=== PATIENT | female | born 1980 | race Hispanic/Latino ===

== ENCOUNTER 2018-01-24 18:49 | Emergency (ER) | payer OTHER, SELFPAY ==
[2018-01-24 19:30] LABS: #Basophils 0.1 thou/uL (0.0-0.2); #Eosinphils 0.2 thou/uL (0.0-0.7); #Lymphocytes 4.2 thou/uL (1.20-3.40); %Basophils 0.7 % (0.0-1.0); %Eosinophils 1.5 % (0.0-10.0); %Lymphocytes 29.1 % (21.0-51.0); %Monocytes 6.8 % (0.0-10.0); %Neutrophils 61.8 % (42.0-75.0); Hemoglobin 13.5 g/dL (12.0-16.0); Mean Corpuscular HGB CONC 33.8 g/dL (32.0-36.0); Mean Corpuscular Hemoglobin 28.7 pg (27.0-31.0); Mean Corpuscular Volume 85.1 fL (78.0-98.0); Mean Platelet Volume 6.7 fL (7.4-10.4); Platelet Count 367 thou/uL (130-400); RBC Distribution Width 11.5 % (11.5-14.5); Red Blood Cell (RBC) Count 4.69 mill/uL (4.20-5.40); White Blood Cell (WBC) Count 14.6 thou/uL (4.8-10.8)
--- NOTE | 2018-01-24 21:54 | ULT ---
PELVIC ULTRASOUND: 01/24/2018 HISTORY: A 37-year-old female. Vaginal bleeding. . COMPARISON: None. TECHNIQUE: Multiplanar brothers-scale sonographic imaging of the pelvis obtained with transabdominal imaging. The ov timothy are assessed with color-flow and spectral analysis. FINDINGS: The uterus measures 9 x 5.3 x 7.4 cm. The uterus contains a gestational sac. Within the gestational sac is a pole, which measures 0. 64 cm. This would correlate with a 6-mgua-0-day gestation. No heart tones could be appreciate d on this exam. No evidence for free pelvic fluid. There is a crescentic hypoechoic area adjacent t o the gestational sac, measuring 1.2 x 0.3 cm, suggesting a subchorionic hemorrhage. There may be a second component of subchorionic hemorrhage adjacent to the gestational sac, measuring in the 7 mm ra nge. Both ovaries demonstrate blood flow. The right ovary measures 3.7 x 2.2 x 2 cm, and the left o vary measures 4.4 x 2.8 x 3.9 cm. Two cysts are seen within the left ovary, measuring up to 1.3 and 1.6 cm, respectively. IMPRESSION: Intrauterine gestational sac, containing a single pole, with no heart tones appreciated. This is suspicious for demise, given clinical age of 9 weeks 2 days. However, correlation wit h quantitative beta hCG at this time and in 48 hours is advised. POS: LISA
== END 2018-01-24 21:38 | disposition home or self-care (01) ==
LOC: ERS 18:49
DX: O20.0 Threatened abortion (principal); O24.111 Pre-existing type 2 diabetes mellitus, in pregnancy, first trimester; E11.9 Type 2 diabetes mellitus without complications; Z3A.01 Less than 8 weeks gestation of pregnancy
CPT/HCPCS: 36415; 76856; 84702; 85025; 86900; 86901

== ENCOUNTER 2018-02-01 15:49 | Outpatient (CLI) | payer OTHER ==
--- NOTE | 2018-02-01 18:08 | ULT ---
OB ULTRASOUND: HISTORY: Evaluation for demise. No heart tones were detected at the doctor's office. FINDINGS: Real-time imaging of the pelvis was obtained transabdominally, as well as with an endovaginal probe. This shows an intrauterine gestational sac. There is evidence of a subchorionic bleed with a cresce nt-shaped fluid collection adjacent to the sac. A pole is identified. Jlnpn-ug-nyrf length me asurements of 5.4 mm correspond to 6 weeks 2 days. No heart tones are detected. A small follicle is seen involving the left adnexa. The right ovary is normal in appearance. On Doppler evaluation with spectral analysis, normal flow is shown to both adnexa. IMPRESSION: No motion or heart activity is seen. The zzjig-xr-wrjz length measurements are 6 weeks 2 days. Typically, a heartbeat could be detected at this stage. This is most suggestive of demise. Given the very small size of the pole, a follow-up ultrasound may be performed, as clinically i ndicated. There is also evidence of a subchorionic bleed. POS: LISA
== END 2018-02-01 15:50 | disposition home or self-care (01) ==
LOC: ULT 15:49
PROVIDERS: ATTEND Nurse Practitioner
DX: O09.91 Supervision of high risk pregnancy, unspecified, first trimester (principal); O20.8 Other hemorrhage in early pregnancy; Z3A.01 Less than 8 weeks gestation of pregnancy
CPT/HCPCS: 76856

== ENCOUNTER 2018-09-14 12:00 | Emergency (ER) | payer OTHER, SELFPAY ==
[2018-09-14 12:27] LABS: #Eosinphils 0.2 thou/uL (0.0-0.7); #Monocytes 0.7 thou/uL (0.11-0.59); #Neutrophils 7.8 thou/uL (1.40-6.50); %Basophils 0.4 % (0.0-1.0); %Eosinophils 1.3 % (0.0-10.0); %Lymphocytes 25.7 % (21.0-51.0); %Monocytes 5.6 % (0.0-10.0); Hemoglobin 13.5 g/dL (12.0-16.0); Mean Corpuscular HGB CONC 33.4 g/dL (32.0-36.0); Mean Corpuscular Hemoglobin 28.5 pg (27.0-31.0); Mean Corpuscular Volume 85.3 fL (78.0-98.0); Mean Platelet Volume 6.6 fL (7.4-10.4); Platelet Count 330 thou/uL (130-400); Red Blood Cell (RBC) Count 4.73 mill/uL (4.20-5.40); White Blood Cell (WBC) Count 11.6 thou/uL (4.8-10.8)
[2018-09-14 12:28] LABS: Bilirubin Negative (Negative); Blood, Urine Small (Negative); Glucose, Urine (Dipstick) Negative (Negative); Leukocyte Negative (Negative); Nitrite Negative (Negative); Protein, Urine (Dipstick) Negative (Neg-Trace); Urobilinogen 0.2 mg/dL (Less than 2)
[2018-09-14 12:30] LABS: Clarity Clear (Clear)
[2018-09-14 12:34] LABS: Bacteria/HPF 1+ HPF (None Seen); Squamous Epithelial 0-3 HPF (0-3); WBC/HPF 0-3 HPF (0-3)
--- NOTE | 2018-09-14 13:26 | ULT ---
ULTRASOUND PELVIC ULTRASOUND TRANSVAGINAL DOPPLER DUPLEX: DATE: 09/14/2018 HISTORY: Pelvic pain TECHNIQUE: Transabdominal transducer and endovaginal transducer used to visualize intrapelvic contents with brothers scale, color-flow, and spectral analysis. FINDINGS: Uterus: 8.5 x 6.5 x 5.5 cm. Right ovary: 2 x 4 x 2 cm with flow. Left ovary: 4.5 x 3 x 2.5 cm with flow. Prominent follicles, the largest of which is 1.5 x 1 x 1 cm. Small amount of free fluid in the posterior cul-de-sac and left adnexa. Intrauterine gestational sac is elongated and thin. Yolk sac visualized. Embryonic pole with crown-rump length of 0.5 cm corresponding to 6 weeks 2 days gestational age. heart rate 113 bpm. No subchorionic hemorrhage. Several nabothian cysts in the cervix. IMPRESSION: 1) live first trimester intrauterine gestation estimated to be 6 weeks 2 days gestational age. 2) abnormal shape of gestational sac, thin and elongated. 3) ovaries are bilaterally prominent, especially left.
== END 2018-09-14 13:39 | disposition home or self-care (01) ==
LOC: ERS 12:00
DX: O20.0 Threatened abortion (principal); O24.911 Unspecified diabetes mellitus in pregnancy, first trimester; Z79.84 Long term (current) use of oral hypoglycemic drugs; Z3A.01 Less than 8 weeks gestation of pregnancy
CPT/HCPCS: 36415; 76856; 81003; 84702; 85025; 86900; 86901; 87086

== ENCOUNTER 2018-10-26 07:31 | Emergency (ER) | payer OTHER, SELFPAY ==
[2018-10-26 08:36] LABS: Bilirubin Negative (Negative); Blood, Urine Large (Negative); Glucose, Urine (Dipstick) Negative (Negative); Leukocyte Moderate (Negative); Nitrite Negative (Negative); Protein, Urine (Dipstick) 100 mg/dL (Neg-Trace); Urobilinogen 0.2 mg/dL (Less than 2)
[2018-10-26 08:49] LABS: Clarity Hazy (Clear)
[2018-10-26 08:52] LABS: Bacteria/HPF None Seen HPF (None Seen); RBC/HPF 0-3 HPF (0-3); Squamous Epithelial 0-3 HPF (0-3)
[2018-10-26 08:55] LABS: #Eosinphils 0.2 thou/uL (0.0-0.7); #Lymphocytes 3.1 thou/uL (1.20-3.40); #Monocytes 0.8 thou/uL (0.11-0.59); #Neutrophils 10.8 thou/uL (1.40-6.50); %Basophils 0.3 % (0.0-1.0); %Eosinophils 1.3 % (0.0-10.0); %Lymphocytes 20.8 % (21.0-51.0); %Monocytes 5.4 % (0.0-10.0); %Neutrophils 72.2 % (42.0-75.0); Hemoglobin 12.9 g/dL (12.0-16.0); Mean Corpuscular HGB CONC 34.8 g/dL (32.0-36.0); Mean Corpuscular Hemoglobin 29.7 pg (27.0-31.0); Mean Corpuscular Volume 85.4 fL (78.0-98.0); Mean Platelet Volume 6.9 fL (7.4-10.4); Platelet Count 305 thou/uL (130-400); RBC Distribution Width 12.5 % (11.5-14.5); Red Blood Cell (RBC) Count 4.33 mill/uL (4.20-5.40)
[2018-10-26 09:18] LABS: ALT (SGPT) 16 U/L (8-55); AST (SGOT) 17 U/L (5-34); Albumin 4.2 g/dL (3.5-5.0); Alkaline Phosphatase 76 U/L (40-150); Anion Gap 15 mmol/L (10-20); BUN (Urea Nitrogen) 6 mg/dL (7.0-18.7); Bilirubin, Total 0.3 mg/dL (0.2-1.2); Calc. Creatinine Clearance 0 mL/min (70-130); Calcium 9.2 mg/dL (7.8-10.44); Carbon Dioxide 22 mmol/L (22-29); Chloride 104 mmol/L (98-107); Estimated GFR-MDRD Greater than 90; Globulin 2.8 g/dL (2.4-3.5); Glucose 88 mg/dL (70-105); Potassium 3.6 mmol/L (3.5-5.1); Sodium 137 mmol/L (136-145)
--- NOTE | 2018-10-26 10:44 | ULT ---
LIMITED OB ULTRASOUND: Date: 10/26/18 HISTORY: 38-year-old female with pelvic pain. FINDINGS: A single, live intrauterine gestation is seen, with measurements corresponding to an estimated gestat ional age of 13 weeks/1 day and BLAYNE at 05/02/2019. heart rate measures 145 bpm. measurements are as follows: BPD: 2.06 cm, 13 weeks/2 days HC: 8.14 cm, 13 weeks/4 days AC: 7.05 cm, 13 weeks/4 days FL: 0.82 cm, 12 weeks/3 days Placenta is posteriorly located without evidence of placenta previa. The amniotic fluid appears adequ ate. Both ovaries have a normal appearance and demonstrate flow. Right ovary measures 3.3 x 2.6 x 2.7 cm a nd the left ovary measures 3.8 x 2.5 x 3.6 cm. IMPRESSION: Single, live intrauterine of 13 weeks/1 day estimated gestational age, and BLAYNE at 0. POS: OFF
== END 2018-10-26 11:21 | disposition home or self-care (01) ==
LOC: ERS 07:31
DX: O23.41 Unspecified infection of urinary tract in pregnancy, first trimester (principal); O24.811 Other pre-existing diabetes mellitus in pregnancy, first trimester; Z79.84 Long term (current) use of oral hypoglycemic drugs; Z3A.13 13 weeks gestation of pregnancy
CPT/HCPCS: 36415; 76815; 80053; 81003; 81015; 85025; 87086

== ENCOUNTER 2019-04-28 10:11 | Inpatient (IN) | payer MEDICAID, SELFPAY ==
[~2019-04-28 10:11] MED LIST: Acetaminophen 500 MG TAB PO PRN; Bicitra 30 ML UDCUP PO SCH; CEFAZOLIN 2 GM in Premix Bag 1 BAG IVPB SCH; Dextrose 5% in Water 1,000 ML IV PRN; Dextrose 50% Abboject 50 ML SYRINGE SLOW IVP PRN; HumaLOG 300 UNITS/3 ML VIAL SC PRN; Lactated Ringer's 1,000 ML IV SCH; Ondansetron PF 4 MG/2 ML Vial IVP PRN; Promethazine HCl 25 MG/ML VIAL IM PRN; hydrALAZINE 20 MG/ML VIAL SLOW IVP PRN
[2019-04-28 12:26] LABS: Hemoglobin 12.2 g/dL (12.0-16.0); Mean Corpuscular HGB CONC 34.8 g/dL (32.0-36.0); Mean Corpuscular Hemoglobin 30.9 pg (27.0-31.0); Mean Corpuscular Volume 88.8 fL (78.0-98.0); Mean Platelet Volume 6.8 fL (7.4-10.4); Platelet Count 297 thou/uL (130-400); RBC Distribution Width 12.3 % (11.5-14.5); Red Blood Cell (RBC) Count 3.94 mill/uL (4.20-5.40); White Blood Cell (WBC) Count 9.8 thou/uL (4.8-10.8)
--- NOTE | 2019-04-28 12:33 | PDOC.FPROB ---
FMR OB H&P: HPI - History of Present Illness Chief Complaint: dorothy rC-section Indentification: 39 yo @ 38.4 wks History of Present Illness: Pt presents for repeat scheduled . Pt is pregestational diabetic who during required insulin. Sugars have been overall well controlled. Has had some episodes of asx hypoglycemia. dorothy at 38 weeks at recs of [facility]. Pt reports FM, denies ctx, vaginal bleeding or LOF. Denies any headaches or vision changes. Denies any swelling. Denies any n/v at this time. Pt states sugar was 80 this morning when checked so did not take any insulin. She did not eat anything this morning. Primary Care Physician: MD Tariq FMR OB H&P: Current - Care : 4 Para: 2011 Gestational age: 38.4 Due date: 05/08/19 Dating Criteria: 6.2 wk sono - OB Labs Blood type: O RH: positive Antibody Screen: negative HIV: negative RPR: negative HepBsAg: negative Rubella: immune Quad screen: negative Urine drug screen: negative Gonorrhea: negative Chlamydia: negative Pap Smear: Pap NILM on 11/04/17 A1c: 6.0>5.6>5.2>5.3>5.5>5.6>5.7 GBS: negative H&H: 12.2 Additional labs: Hep C negative. TSH 1.35 03/03/19 24hr protein 198 10/21/18 24 hr protein 195 - First Trimester Ultrasound First trimester: 6w2d crl 60 BLAYNE 05/08/19 - Anatomy Survey Anatomy survey: 12/16/18- Normal echo 01/13/19- 29% hadlock, placental edge 2.0 cm from internol os 03/17/19- Low lying placenta resolved. BPP 10/14. Normal ROSA. Hadlock 32% FMR OB H&P: History - Past Medical History PMH: DM2 - OB History OB History: C-sectionx2, 01/22/11- 2nd at [facility]. 09/03/99 1st in [place]. 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 Denies any hx STD or abnormal pap smear - Surgical History Sx History: x2 - Social History Social History: Denies any smoking, drinking or illicit drug use - Family History Family History: Noncontributory FMR OB H&P: Medications - Current Home Medications: Medication Instructions Recorded Confirmed Type Aspirin Chewable 81 mg PO DAILY 04/28/19 04/28/19 History Insulin Aspart [Novolog Flexpen] 100 unit SQ 04/28/19 History Insulin Aspart [Novolog] 100 unit SQ 04/28/19 History Vits96/Iron Fum/Folic 04/28/19 History [ Tablet] Allergies/Adverse Reactions: Allergies Allergy/AdvReac Type Severity Reaction Status Date / Time sulfacetamide Allergy Severe Hives Verified 04/28/19 14:02 [From Sulfamide] FMR OB H&P: ROS - Review of Systems General: denies: fever/chills, weight/appetite/sleep changes Eyes: denies: eye pain, vision changes Cardiovascular: denies: chest pain, palpitation, paroxysmal nocturnal dyspnea Respiratory: denies: cough, congestion, shortness of breath Gastrointestinal: denies: abdominal pain, indigestion, bloating, cramping, nausea, vomiting, diarrhea Genitourinary (Female): denies: incontinence, dysuria, hematuria Musculoskeletal: denies: pain, stiffness, tenderness Neurologic: denies: numbness, seizures, weakness Integumentary: denies: itching, rash, lesions Breast: denies: lumps Endocrine: denies: cold intolerance, heat intolerance Hematologic/Lymphatic: denies: prolonged or excessive bleeding Psychological: denies: depression, anxiety FMR OB H&P: Vital Signs - Maternal Vital signs: T 98.5 P 73 RR 18 O2 100% on RA BP 99/60 FMR OB H&P: Physical Exam - Physical Exam General: NAD HEENT: normocephalic and atraumatic, grossly normal vision, grossly normal hearing Neck: supple, FROM, trachea midline, no LAD Heart: RRR, normal S1/S2, no murmurs/rubs/gallops, pulses present, no edema General: CTAB, no respiratory distress, good air movement, no rales/rhonchi, no wheezing, no retractions Abdomen: soft, gravid, fundus(cm), non-tender, bowel sound present, no masses Musculoskeletal: normal gait and station, pulses present, FROM in all four extremities, no misalignment/asymmetry Neurological: sensation to pain,touch and proprioception grossly normal Skin: no rash Lymphatic: no unusual bruising or bleeding Psychiatric: intact recent and remote memory, good judgement and insight, normal mood and affect FMR OB H&P: Results - Labs Lab results: Laboratory Results - last 24 hr 04/28/19 12:16 WBC 9.8 RBC 3.94 L Hgb 12.2 Hct 35.0 L MCV 88.8 MCH 30.9 MCHC 34.8 RDW 12.3 Plt Count 297 MPV 6.8 L FMR OB H&P: A/P - Problem List (1) Diabetes mellitus type 2 in obese Current Visit: Yes Status: Acute Code(s): E11.69 - TYPE 2 DIABETES MELLITUS WITH OTHER SPECIFIED COMPLICATION; E66.9 - OBESITY, UNSPECIFIED (2) Current Visit: Yes Status: Acute (3) Advanced maternal age (AMA), 40 years or greater Current Visit: Yes Status: Acute Code(s): [id number] - Disposition: 39 yo @ 38.4 wks by 6.2 wk [facility]2 insulin dependent pregestational diabetes -Will give abx prior to -Pt NPO -FHR 130. Cat 1 strip. - recommended by MFM at 38-39 weeks 2/2 AMA, prior C-sections and insulin dependent Diabetes. DM2 requiring insulin -Last A1c 5.7. Pt been on insulin since early in . -Accuchecks q2 hrs prior to surgery. Will then check ACHS. Pt was not on insulin prior to . Was well controlled on metformin. Will trend glucose pp and adjust tx regimen as needed. -Mild SSI at this time. AMA -Pt has had routine f/u with MFM. Following recs. Discussion: Date/Time: 04/28/19 1231 This H&P was discussed with [] and [] who agree with the above documentation and plan. Addendum - Attending - Attending Attestation Date/Time: 04/28/19 5520. I personally evaluated the patient and discussed the management with Dr. Potter I agree with the History, Examination, Assessment and Plan documented above with any addition or exceptions noted below. presents for rLTCS. R/B/A discussed. will proceed.
[2019-04-28 13:07] LABS: Syphilis Antibody Nonreactive (Nonreactive); Syphilis Antibody Index 0.05 S/CO (<1.00 Non-Reactive)
[2019-04-28 13:08] LABS: HBSAg Index 0.26 S/CO (0-0.99); Hep B Surf Ag Non-Reactive S/CO (NonReactive)
[2019-04-28 14:49] VITALS: BMI 26.6
[2019-04-28] MEDS ORDERED: MORPHINE 5 MG/10 ML PF VIAL ONE (15:09)
[2019-04-28] MEDS ORDERED: Oxytocin 10 UNITS/ML VIAL ONE (15:10)
[2019-04-28] MEDS ORDERED: PHENYLEPHRINE-NS 100 MCG/ML 10 ML SYRINGE ONE (15:10)
[2019-04-28] MEDS ORDERED: Promethazine HCl 25 MG/ML VIAL IM PRN (15:59)
[2019-04-28] MEDS ORDERED: L&D-Morphine 4 MG/ML VIAL SLOW IVP PRN (15:59)
[2019-04-28] MEDS ORDERED: Naloxone HCl 0.4 mg/ml Vial IVP PRN ×2 (15:59)
[2019-04-28] MEDS ORDERED: Ondansetron PF 4 MG/2 ML Vial IVP PRN ×2 (15:59→22:31)
[2019-04-28] MEDS ORDERED: Ketorolac Tromethamine 30 MG/ML VIAL IVP PRN (15:59)
[2019-04-28] MEDS ORDERED: HYDROmorphone 2 MG/ML VIAL SLOW IVP PRN (15:59)
[2019-04-28] MEDS ORDERED: diphenhydrAMINE 50 MG/ML VIAL IVP PRN (15:59)
[2019-04-28] MEDS ORDERED: Meperidine HCl/PF 25 MG/ML VIAL SLOW IVP PRN (15:59)
[2019-04-28] MEDS ORDERED: Promethazine HCl 25 MG SUPP PR PRN (15:59)
[2019-04-28] MEDS ORDERED: Naloxone HCl 0.4 mg/ml Vial IV PRN (15:59)
[2019-04-28] MEDS ORDERED: Ondansetron HCl/PF 4 MG/2 ML Vial IVP PRN (15:59)
[2019-04-28] MEDS ORDERED: Ketorolac Tromethamine 30 MG/ML VIAL IVP SCH (16:00)
[2019-04-28] MEDS ORDERED: Communication Order-Pharmacy FS SCH (16:00)
[2019-04-28] MEDS ORDERED: Ondansetron PF 4 MG/2 ML Vial ONE (16:13)
[2019-04-28] MEDS ORDERED: Midazolam HCl 2 mg/2 ml Vial ONE (16:25)
[2019-04-28] MEDS ORDERED: NS / Oxytocin 40 units/1000ml 1,000 ML ONE (17:31)
[2019-04-28] MEDS ORDERED: Dextrose 50% Abboject 50 ML SYRINGE SLOW IVP PRN (22:31)
[2019-04-28] MEDS ORDERED: diphenhydrAMINE 25 MG CAP PO PRN (22:31)
[2019-04-28] MEDS ORDERED: hydrALAZINE 20 MG/ML VIAL SLOW IVP PRN (22:31)
[2019-04-28] MEDS ORDERED: HumaLOG 300 UNITS/3 ML VIAL SC PRN ×2 (22:31)
[2019-04-28] MEDS ORDERED: Lanolin Ointment 7 GM TUBE TOP PRN (22:31)
[2019-04-28] MEDS ORDERED: Dextrose 5% in Water 1,000 ML IV PRN (22:31)
[2019-04-29] MEDS ORDERED: HYDROcodone/Acetaminophen 5/325 mg Tablet PO PRN ×2 (04:00)
--- NOTE | 2019-04-29 04:32 | PDOC.OBPPN ---
FMR OB PN: Subj - Interval History Hospital Day: 0 Day: 0 Chief Complaint: s/p rLTCS Interval History: Mild pain but well-controlled with PO, no CP, SOB, n/v. FMR OB PN: Obj - Maternal Vital signs: BP 107/69, BG 111 - Urine output I&O: 04/27/19 04/28/19 04/29/19 06:59 06:59 06:59 Output Total 726 Balance -726 - Lochia Lochia: moderate, greater than normal period, intermittent clots. - Pain Management Intervention: oral medication FMR OB PN: Exam - Physical Exam General: NAD, awake, alert and oriented HEENT: EOMI, MMM Neck: supple, trachea midline Heart: RRR, normal S1/S2, no murmurs/rubs/gallops, no edema General: CTAB, no respiratory distress, good air movement, no wheezing Abdomen: soft, other (appropriately TTP. Dressing in place, c/d/i.) Deviation from normal: rivera in place, dark urine. adequate UOP. Neurological: no focal deficit : bandage intact, no drainage, appropriately tender FMR OB PN: Data - Labs Lab results: Laboratory Results - last 24 hr 04/28/19 04/28/19 04/28/19 12:16 12:16 12:16 WBC RBC Hgb Hct MCV MCH MCHC RDW Plt Count MPV POC Glucose Syphilis IgG/IgM Ab Nonreactive Hep Bs Antigen Non-Reactive Blood Type O POSITIVE Antibody Screen NEGATIVE 04/28/19 04/28/19 04/28/19 12:16 13:10 14:21 WBC 9.8 RBC 3.94 L Hgb 12.2 Hct 35.0 L MCV 88.8 MCH 30.9 MCHC 34.8 RDW 12.3 Plt Count 297 MPV 6.8 L POC Glucose 62 L 83 Syphilis IgG/IgM Ab Hep Bs Antigen Blood Type Antibody Screen 04/28/19 04/28/19 17:39 18:26 WBC RBC Hgb Hct MCV MCH MCHC RDW Plt Count MPV POC Glucose 67 L 111 H Syphilis IgG/IgM Ab Hep Bs Antigen Blood Type Antibody Screen FMR OB PN: A/P - Problem List (1) Advanced maternal age (AMA), 40 years or greater Current Visit: Yes Status: Acute Code(s): [id number] - (2) Diabetes mellitus type 2 in obese Current Visit: Yes Status: Acute Code(s): E11.69 - TYPE 2 DIABETES MELLITUS WITH OTHER SPECIFIED COMPLICATION; E66.9 - OBESITY, UNSPECIFIED (3) Current Visit: Yes Status: Acute Disposition: 39 yo @ 38.4 wks by 6.2 wk sono s/p dorothy rC-section 2/2 insulin dependent pregestational diabetes # Term , delivered by rLTCS for pregestational DM - now 3 @ 38.4 wks by 6.2 wk sono - rLTCS with delivery of F infant @ 1609. Apgars 8/9. - Rivera in place with dark urine but approx 100cc/hr UOP. - Incision dressing c/d/i. Moderate Lochia, will cont to monitor. - routine post c/s care #DM2 requiring insulin -Last A1c 5.7. Pt been on insulin since early in . -Accuchecks q2 hrs prior to surgery. Will then check HS and 2hour post prandial. Pt was not on insulin prior to . Was well controlled on metformin. Will trend glucose pp and adjust tx regimen as needed. PCP: Tariq Discussion: Date/Time: 04/29/19 0430 This H&P was discussed with Dr. Potter and Dr. Seanz who agree with the above documentation and plan. Addendum - Attending - Attending Attestation Date/Time: 04/29/19 1102 I personally evaluated the patient and discussed the management with Dr. Griffith I agree with the History, Examination, Assessment and Plan documented above with any addition or exceptions noted below. Normal post op day 1 exam. H&H dropped to 9.8. start iron. asymptomatic. likely d/c tomorrow.
[2019-04-29] MEDS: Ibuprofen 800 MG TAB PO SCH ×3 (05:41→22:15)
[2019-04-29 06:06] LABS: Hemoglobin 9.8 g/dL (12.0-16.0); Mean Corpuscular HGB CONC 34.3 g/dL (32.0-36.0); Mean Corpuscular Hemoglobin 30.1 pg (27.0-31.0); Mean Corpuscular Volume 87.8 fL (78.0-98.0); Mean Platelet Volume 6.9 fL (7.4-10.4); Platelet Count 251 thou/uL (130-400); RBC Distribution Width 12.2 % (11.5-14.5); Red Blood Cell (RBC) Count 3.26 mill/uL (4.20-5.40); White Blood Cell (WBC) Count 11.2 thou/uL (4.8-10.8)
[2019-04-29] MEDS: Prenatal Vitamin 1 TAB PO SCH (08:42)
[2019-04-29] MEDS: Docusate Calcium (SURFAK) 240 MG CAP PO SCH ×2 (08:42→20:52)
[2019-04-29] MEDS: Ferrous Sulfate 325 MG TAB PO SCH ×2 (08:43→20:52)
[2019-04-29] MEDS ORDERED: Adacel (T-DAP) 0.5 ML SYRINGE IM ONE (09:00)
--- NOTE | 2019-04-29 09:43 | PDOC.PP ---
Post Progress Note Post Day #: 1 Subjective: Pt reports doing well. Pt has not gotten up much and moved around yet. Has not ate much yet. Pt reports pain well controlled at this time. Pt reports lochia as light. Reports passing some gas. Denies fever, chills. Denies chest pain or SOB. Denies any swelling. Denies any n/v/d/c. PO intake tolerated: yes Flatus: yes Ambulation: yes Vital Signs (12 hours) Temp Pulse Resp BP Pulse Ox 04/29/19 08:25 99.2 F 75 20 102/67 99 04/29/19 04:00 98.9 F 77 16 101/57 L 99 04/29/19 00:00 98.5 F 73 16 99/60 100 04/28/19 22:10 98.3 F 76 16 94/65 100 Weight Weight 72.575 kg - Physical Examination General: NAD Cardiovascular: no m/r/g, RRR Respiratory: clear to auscultation bilaterally, non-labored breathing Abdominal: + bowel sounds, lochia (reports lochia as normal), no distention Fundus firm & at: umbilicus Extremities: negative homans (B) Skin: CS incision dry & intact, no rash Neurological: no gross focal deficits Psychiatric: A&Ox3, normal affect Result Diagrams: 04/29/19 05:38 Additional Labs: Post Labs Blood Type O POSITIVE 04/28/19 12:16 Hep Bs Antigen Non-Reactive S/CO (NonReactive) 04/28/19 12:16 (1) Diabetes mellitus type 2 in obese Code(s): E11.69 - TYPE 2 DIABETES MELLITUS WITH OTHER SPECIFIED COMPLICATION; E66.9 - OBESITY, UNSPECIFIED Status: Acute (2) Status: Acute (3) Advanced maternal age (AMA), 40 years or greater Code(s): [id number] - Status: Acute - Assessment/Plan 39 yo ->3 @ 38.4 wks by 6.2 wk sono delivered GALLITO Mao on 04/28/19 via rLTCS @ 16:09. Post Op -Routine Post op care. -Pain well controlled at this time. Continue current regimen -Advised to get up and move around today. -Breast and bottle feeding. consulted. Will try and get breast pump and see if pt will want to use. Advised to use to help milk supply DM2 requiring insulin -Last A1c 5.7. Pt been on insulin since early in . Was not on any medication prior to -will check fasting and 2 hr pp glucose. Will hold on insulin regimen. Will monitor and start if needed. -Mild SSI at this time. AMA -Pt has had routine f/u with MFM. Following recs.
[2019-04-29] MEDS: Simethicone Chewable 80 MG TAB PO PRN (20:52)
--- NOTE | 2019-04-30 00:40 | PDOC.OPDEL ---
OB Operative/Delivery Note Delivery Dr/Surgeon: Star Potter, PGY3, Jerrod Saenz MD Assist: Patrick Griffith, PGY-1 Pre-Delivery Diagnosis: scheduled section Procedure/Post Delivery Dx: repeat low transverse CS Weeks gestation: 38 (4 days) Anesthesia: spinal - Findings A Sex: female - 1 min: 8 - 5 min: 9 - Additional Findings/Plan Placenta delivered: manual removal findings: low transverse hysterotomy without extension, normal tubes, normal ovaries Estimated blood loss: 726 Compilations/Other Findings: Date of Procedure: 04/28/19 Resident Surgeon: Star Potter, PGY-3 Linoleum Layer Surgeon: Patrick Griffith, PGY-1 Attending Surgeon: Jerrod Saenz MD Procedure: Repeat low transverse caesarean section Preoperative Diagnosis: 1)Term intrauterine pregnancy2)Previous vertical c- sectionx2 3)Pregestation Diabetes on Insulin 4) AMA Postoperative Diagnosis: 1)same as above plus any other findings during surgery Anesthesia: spinal Indications: The patient is a 39 year old [id number] at 38.4 weeks gestation who presents for a repeat scheduled per recs of [facility] 04/10 to pregestation diabetes and previous . Procedure in Detail: After risks, benefits, and alternatives were explained to the patient, she gave informed consent. Pre-operative antibiotics included Cefazolin 2 gram IV. The patient was taken to the operating room and spinal anesthesia was initiated. She was placed in the supine position with a left tilt and prepped and draped in usual sterile fashion. A Pfannenstiel incision was made with a scalpel and carried down to the level of the fascia which was sharply nicked. The fascial cut was extended bilaterally with curved June sissors. The inferior and superior edges of the cut fascial edges were elevated with Irvin clamps and the underlying rectus muscles were sharply and bluntly dissected free. The recti were divided digitally and retracted manually. The peritoneum was entered bluntly and retracted manually. Triston O retractor was placed. A low transverse score was made with the scalpel and the uterus was entered in the midline with the scalpel. Clear fluid was seen. The hysterotomy was extended manually. The was noted to be vertex and was easily delivered by fundal pressure. Mouth and nares were bulb suctioned. Cord clamped and cut and grossly normal female was handed to waiting nurse. Cord blood was obtained. Placenta was manually extracted, found to be intact with 3 vessel cord and discarded. The uterus was externalized and the endometrium was curetted with a dry lap. The uterus was closed with a running locking 1- Monocryl suture. Two figure of eight 0-monocryl suture were placed at incision edges. Oozing was still noted along left incision edge. Floseal was applied along hysterotomy. Following this hemostasis was noted. The uterus was internalized and the hysterotomy was again noted to be hemostatic. The fascia was closed with a running non-locking 0-PDS suture. The subcutaneous tissue was irrigated and there were no bleeders. The subq layer was appoximated with running non-locking 3-0 chromic.The skin was approximated with running 3-0 vicryl subcuticular stitch. Dermabond was then applied over incision and a pressure dressing was placed. All counts were correct. The patient tolerated the procedure well and was taken to the recovery room in stable condition. Estimated Blood Loss: 726 ml Complications: None Specimens: Cord blood sent to lab for blood type Findings: Grossly normal male/female infant with apgars of 8 and 9. Grossly normal placenta with 3 vessel cord discarded. Drains: Craig to gravity draining clear urine Post delivery plan: recovery in LICU
[2019-04-30] MEDS: Ibuprofen 800 MG TAB PO SCH ×2 (06:07→12:51)
[2019-04-30] MEDS: Simethicone Chewable 80 MG TAB PO PRN ×2 (06:12→12:51)
[2019-04-30] MEDS: Prenatal Vitamin 1 TAB PO SCH (08:52)
[2019-04-30] MEDS: Docusate Calcium (SURFAK) 240 MG CAP PO SCH (08:53)
[2019-04-30] MEDS: Ferrous Sulfate 325 MG TAB PO SCH (08:53)
[2019-04-30 15:26] VITALS: BP 127/80; TEMP 98.8
== END 2019-04-30 16:15 | disposition home or self-care (01) | DRG 786 ==
LOC: L&D-LIB 10:11 → 3SE 22:07
PROVIDERS: ADMIT Family Medicine; ATTEND Family Medicine
PROC: 10D00Z1 Extraction of Products of Conception, Low, Open Approach (ICD-10-PCS; principal; 2019-04-28)
PROC: 6A550ZT Pheresis of Cord Blood Stem Cells, Single (ICD-10-PCS; 2019-04-28)
DX: O34.219 Maternal care for unspecified type scar from previous cesarean delivery (principal); O24.32 Unspecified pre-existing diabetes mellitus in childbirth; E11.9 Type 2 diabetes mellitus without complications; Z3A.38 38 weeks gestation of pregnancy; Z37.0 Single live birth; O99.214 Obesity complicating childbirth
CPT/HCPCS: 36415; 36416; 85027; 86780; 86850; 86900; 86901; 87340; J0690; J1200; J1610; J2250; J2274; J2405; J2590; Q0163